=== PATIENT | male | born 1975 | race Caucasian/White ===

== ENCOUNTER → 2016-07-20 | Outpatient (CLI) | payer OTHER ==
[~2016-07-20] MED LIST: ALEVE220 MG PO; CIPRO500 MG PO; FLAGYL500 MG PO; FLONASE16 G1 BOTH NARES; MOBIC15 MG PO; MOTRIN600 MG PO; NEXIUM40 MG PO; OXYCODONE HCL5 MG PO; PANTOPRAZOLE SO40 MG PO; PRILOSEC20 MG PO; WELLBUTRIN XL300 MG PO; ZOFRAN4 MG PO; ZOFRAN8 MG PO
== END | disposition home or self-care (01) ==
LOC: CDC 09:29
DX: I45.9 Conduction disorder, unspecified (principal); M25.512 Pain in left shoulder; M75.42 Impingement syndrome of left shoulder; I10 Essential (primary) hypertension
CPT/HCPCS: 93000

== ENCOUNTER 2016-11-15 19:33 | Emergency (ER) | payer OTHER ==
[~2016-11-15] VITALS: Ht 177.8 cm; Wt 101.1 kg
[2016-11-15 20:19] LABS: HEMATOCRIT 46.5 % (38.0-50.0); MCH 30.6 PG (29.0-34.0); MCV 90.1 FL (86-99); MEAN PLAT.VOLUME 10.1 uM^3 (9.0-12.4); PLATELET COUNT 187 K/uL (156-360); RBC DIS.WIDTH-CV 11.5 % (11.8-14.6); RED BLOOD COUNT 5.16 M/uL (4.00-5.50); WHITE BLOOD COUNT 5.6 K/uL (4.1-10.2)
[2016-11-15 20:28] LABS: CHLORIDE 106 mEq/L (99-109); POTASSIUM 4.2 mEq/L (3.7-5.4); SODIUM 140 mEq/L (136-147)
[2016-11-15 20:30] LABS: GLUCOSE 114 mg/dL (70-99)
[2016-11-15 20:32] LABS: ANION GAP 8 MEQ/L (2-14); TOTAL BILIRUBIN 0.4 mg/dL (0.0-1.0)
[2016-11-15 20:34] LABS: ALKALINE PHOSPHATASE 111 IU/L (3-129); GFR ESTIMATE (CALCULATED) > 59 mL/min/
[2016-11-15 20:35] LABS: UREA NITROGEN (BUN) 9 mg/dL (9-23)
[2016-11-15 20:36] LABS: DIRECT BILIRUBIN 0.2 mg/dL (0.0-0.3)
[2016-11-15 20:38] LABS: LIPASE 40 U/L (1.0-51.0)
[2016-11-15 20:39] LABS: TROP-I INTERPRETATION NEGATIVE; TROPONIN-I < 0.01 ng/mL (0.0-0.30)
[2016-11-15 20:48] LABS: D-DIMER ELISA 0.32 mg/L FEU (< 0.57)
[2016-11-15 23:19] LABS: TROP-I INTERPRETATION NEGATIVE; TROPONIN-I < 0.01 ng/mL (0.0-0.30)
[2016-11-15 23:58] VITALS: BP 111/77
== END 2016-11-16 00:01 | disposition home or self-care (01) ==
LOC: EME 19:33
PROVIDERS: Physician Assistant
DX: R07.9 Chest pain, unspecified (principal); R11.2 Nausea with vomiting, unspecified; R19.7 Diarrhea, unspecified; M54.2 Cervicalgia; R42 Dizziness and giddiness
CPT/HCPCS: 71020; 80048; 80076; 83690; 84484; 85027; 85379; 93005; 99281; 99285; J2270; J2765; J7030; S0028